=== PATIENT | male | born 1960 | race Caucasian/White ===

== ENCOUNTER 2016-05-12 10:24 | Emergency (ER) | payer MEDICARE ==
[2016-05-12] MEDS ORDERED: KETOROLAC 60 MG/2 ML VIAL IM ONE (11:50)
[2016-05-12] MEDS ORDERED: TDaP 0.5 ML VIAL IM.VACC ONE (21:35)
== END 2016-05-12 13:17 | disposition home or self-care (01) ==
LOC: ER 10:24
DX: M79.1 Myalgia (principal)
CPT/HCPCS: 36415; 80053; 81003; 82550; 85025; 96372

== ENCOUNTER 2016-05-14 15:47 | Emergency (ER) | payer MEDICARE ==
[2016-05-14] MEDS ORDERED: humuLIN REG INSULIN ONE (18:12)
[2016-05-14] MEDS ORDERED: SODIUM CHLORIDE 0.9% 1,000 ML ONE (19:06)
[2016-05-14] MEDS ORDERED: ONDANSETRON 4 MG VIAL ONE (19:42)
== END 2016-05-14 20:35 | disposition home or self-care (01) ==
LOC: ER 15:47
DX: A08.4 Viral intestinal infection, unspecified (principal); R73.9 Hyperglycemia, unspecified
CPT/HCPCS: 36415; 80053; 82009; 82947; 85025; 96361; 96372; 96374; 99283; J2405